=== PATIENT | male | born 1990 | race Caucasian/White ===

== ENCOUNTER → 2017-02-10 | Outpatient (CLI) | payer OTHER ==
[~2017-02-10] MED LIST: AUGMENTIN; BACTRIM DS TABL1 TA1 PO; BACTRIM DS TABL1 TA2 PO; BACTROBAN22 GM TP; CLEOCIN HCL300 M1 PO; CLEOCIN PO; COREG PO; COREG3.125 MG; COREG3.125 MG PO; FLEXERIL10 MG PO; GLUCOSE; HUMALOG100 U/M1 SUBQ; HUMALOG100 U/ML; HYDROCODON-ACE1 EAC7 PO; KEFLEX500 M2 PO; LANTUS100 U/M1 SQ; LANTUS100 U/ML; LANTUS100 U/ML SQ; LANTUS100 U/ML SUBQ; LANTUS100 UNITS/ SUBQ; LISINOPRIL1 GM; LISINOPRIL2.5 MG PO; MOTRIN600 MG PO; NAPROSYN-EC500 M1 PO; NOVOLOG100 U/M1; NOVOLOG100 U/M1 SQ; NOVOLOG100 U/ML; NOVOLOG100 U/ML SQ; NOVOLOG100 U/ML SUBQ; VOLTAREN50 MG PO; VOLTAREN75 MG PO; ZANTAC150 MG PO; ZESTRIL2.5 MG PO
--- NOTE | ~2017-02-10 | CR63 ---
[facility]. [facility] A Service of [facility] & [facility] RADIOLOGY TEXT RESULTS PATIENT: JESSY PENA LOCATION: [facility] : 88 UNIT #: [id number] AGE: [address]: SILVA MILLER APRN SEX: M ORDER DR: [id number] [address] [address] [id number] O MR#: [id number] Acc #: [id number] NAME: JESSY PENA : 1990 SEX: M STUDY DATE/TIME: 02/10/2017 11:09 UNIT: SRAD ROOM: STUDY DESCRIPTION: CR Chest 2 View Attending Physician: Silva Miller Aprn Referring Physician: Silva Miller Aprn Ordering Physician: Silva Miller Aprn Primary Care Physician: Silva Miller Aprn MEDICAL IMAGING REPORT This report is preliminary unless electronic signature is present. EXAM Chest, PA and lateral, 02/10/2017. HISTORY Swollen lymph nodes right side of neck on physical examination 4 days ago. Smoking history for 10 years. FINDINGS PA and lateral examination of the chest upright shows a good expansion of the parenchyma with a normal distribution of the pulmonary vascularity. There is no indication of congestion, effusion, infiltrate, tumor, or nodular density. The pleural reflections and diaphragmatic contours are normal. The cardiac silhouette and mediastinal anatomy is within normal limits. IMPRESSION Normal chest. Dictated by... Avi Donahue M.D. THIS IS AN ELECTRONICALLY VERIFIED REPORT Avi Donahue M.D. at 02/11/2017 8:07 AM ELISA/garry TD: 02/10/2017 12:34 JOB #: [id number] MEDICAL IMAGING REPORT Page 1 of 1
== END | disposition home or self-care (01) ==
LOC: SRAD 11:02
DX: R59.0 Localized enlarged lymph nodes (principal)
CPT/HCPCS: 71020

== ENCOUNTER 2017-04-17 05:47 | Emergency (ER) | payer OTHER ==
[~2017-04-17] VITALS: Ht 170.2 cm; Wt 61.2 kg
== END 2017-04-17 06:28 | disposition home or self-care (01) ==
LOC: SED 05:47
DX: J02.9 Acute pharyngitis, unspecified (principal); H66.91 Otitis media, unspecified, right ear; F41.9 Anxiety disorder, unspecified; I50.9 Heart failure, unspecified; F32.9 Major depressive disorder, single episode, unspecified; E78.00 Pure hypercholesterolemia, unspecified; E10.8 Type 1 diabetes mellitus with unspecified complications; F17.200 Nicotine dependence, unspecified, uncomplicated; Z79.4 Long term (current) use of insulin
CPT/HCPCS: 99282